=== PATIENT | male | born 1955 | race Caucasian/White ===

== ENCOUNTER 2021-06-26 06:15 | Emergency (ER) | payer BC ==
[~2021-06-26] VITALS: Ht 167.6 cm; Wt 86.4 kg
[2021-06-26] MEDS ORDERED: meclizine 12.5mg tablet PO ONE (06:35)
[2021-06-26] MEDS ORDERED: MECL-159 PO (06:45)
[2021-06-26 06:46] VITALS: BP 156/97
--- NOTE | 2021-06-26 06:52 | NUR ---
Pt and given and understands d/c instructions. Ambulatory with a steady gait.
== END 2021-06-26 06:57 | disposition home or self-care (01) ==
LOC: ER 06:16
DX: R42 Dizziness and giddiness (principal); R11.0 Nausea; M25.512 Pain in left shoulder; Z72.89 Other problems related to lifestyle; Z79.899 Other long term (current) drug therapy
CPT/HCPCS: 93005; 99283; J8597; 99284

== ENCOUNTER 2024-05-19 18:47 | Emergency (ER) | payer MEDICARE ==
[~2024-05-19] VITALS: Ht 167.6 cm; Wt 74.7 kg
[~2024-05-19 18:47] MED LIST: MECL-302 PO
[2024-05-19 19:48] LABS: BASOPHILS # (AUTO) 0.1 X10'3 (0-0.2); BASOPHILS % (AUTO) 0.6 % (0-1); EOSINOPHILS # (AUTO) 0.3 X10'3 (0-0.9); EOSINOPHILS % (AUTO) 3.1 % (0-6); HEMATOCRIT 44.3 % (42.0-52.0); LYMPHOCYTES # (AUTO) 2.6 X10'3 (1.1-4.8); LYMPHOCYTES % (AUTO) 30.8 % (21-51); MEAN CORPUSCULAR HEMOGLOBIN 34.4 PG (27.0-31.0); MEAN CORPUSCULAR HGB CONC 33.9 g/dL (33.0-36.5); MEAN CORPUSCULAR VOLUME 101.5 FL (78-98); MEAN PLATELET VOLUME 8.5 FL (7.4-10.4); MONOCYTES # (AUTO) 0.8 X10'3 (0-0.9); MONOCYTES % (AUTO) 8.8 % (2-12); NEUTROPHILS # (AUTO) 4.8 X10'3 (1.8-7.7); NEUTROPHILS % (AUTO) 56.7 % (42-75); PLATELET COUNT 262 X10'3 (140-440); RED BLOOD COUNT 4.36 X10'6 (4.70-6.10); RED CELL DISTRIBUTION WIDTH 13.7 % (11.5-14.5); WHITE BLOOD COUNT 8.5 X10'3 (4.5-11.0)
[2024-05-19 19:58] LABS: ALANINE AMINOTRANSFERASE 28 U/L (12-78); ALBUMIN 3.9 G/DL (3.4-5.0); ALKALINE PHOSPHATASE 78 IU/L (46-116); ANION GAP 10 (8-16); ASPARTATE AMINO TRANSFERASE 24 U/L (10-37); BLOOD UREA NITROGEN 20 MG/DL (7-18); BUN/CREATININE RATIO 24.4 (10.0-20.0); CALCIUM 8.8 MG/DL (8.5-10.1); CHLORIDE 103 MMOL/L (99-107); CREATININE 0.82 MG/DL (0.60-1.10); GLUCOSE 93 MG/DL (70-104); LIPASE 49 U/L (16-77); POTASSIUM 3.5 MMOL/L (3.5-5.1); SODIUM 139 MMOL/L (135-145); TOTAL CARBON DIOXIDE 26.4 MMOL/L (24-32); TOTAL PROTEIN 7.8 G/DL (6.4-8.2); eCRCL 80 ML/MIN; eGFR > 90 ML/MIN
[2024-05-19 20:34] LABS: BILIRUBIN,URINE NEGATIVE (Neg); CLARITY,URINE CLEAR (Clear); COLOR,URINE YELLOW (Yellow); GLUCOSE, URINE NEGATIVE (Neg); KETONES,URINE TRACE mg/dl (Neg); LEUKOCYTE ESTERASE ,URINE NEGATIVE (Neg); NITRITES, URINE NEGATIVE (Neg); OCCULT BLOOD,URINE TRACE-LYSED (Neg); PH,URINE 5.5 (4.8-8.0); PROTEIN,URINE NEGATIVE (Neg); UROBILINOGEN,URINE 0.2 E.U/dL (0.2-1.0)
[2024-05-19 20:38] LABS: UA COLLECTION TYPE CLN CATCH MIDSTREAM
[2024-05-19] MEDS ORDERED: iohexol 300mg/ml 100ml inj. ONE (20:38)
[2024-05-19 20:40] LABS: BACTERIA,URINE FEW /HPF (Neg); MUCUS STRANDS FEW /LPF (Neg); RBC,URINE 0-2 /HPF (0-2); SQUAMOUS EPITHELIAL CELL,UR FEW /LPF (FEW); WBC,URINE 0-4 /HPF (0-4)
[2024-05-19 21:26] VITALS: BP 179/95; PULSE 63; RESP 16; TEMP 98.6; O2SAT 97
== END 2024-05-19 21:35 | disposition home or self-care (01) ==
LOC: ER 18:48
DX: R10.9 Unspecified abdominal pain (principal)
CPT/HCPCS: 36415; 74177; 80053; 81001; 83690; 85025; 99285; Q9967